=== PATIENT | male | born 1985 | race Caucasian/White ===

== ENCOUNTER 2020-01-04 20:28 | Emergency (ER) | payer SELFPAY ==
[~2020-01-04] VITALS: Ht 165.1 cm; Wt 95.3 kg
[2020-01-04 20:32] VITALS: BP 148/93
--- NOTE | 2020-01-04 20:32 | NUR ---
BIBA TO BED 05
--- NOTE | 2020-01-04 20:42 | NUR ---
DR. MANNING AT BEDSIDE EVALUATING PT.
--- NOTE | 2020-01-04 20:42 | NUR ---
33 Y/O M BIBA C/O LT FOOT PAIN 11/11 X 3 DAYS. [facility] REPORT, PT WAS FOUND IN FRONT OF [place] INSIDE A RENTAL CAR THAT HE HAS BEEN LIVING IN X 2 DAYS. PT AAOX1. PT CONFUSED, DOESN'T KNOW WHERE HE IS, HIS BIRTHDAY. PT ONLY KNOWS HIS NAME. PT LT FOOT SEEMS TO BE CONTRACTED AND IS WRAPPED. PT UNABLE TO EXPLAIN WHAT HAPPENED TO LEFT FOOT. BED LOCKED AND IN LOWEST POSITION, SIDE RAIL UP X2. WILL CONTINUE TO MONITOR. PMHX: DENIES ALLERGIES: DENIES
[2020-01-04] MEDS ORDERED: NACL 0.9% 1,000 ML IV ONE (20:50)
--- NOTE | 2020-01-04 20:51 | NUR ---
PT PROVIDED WITH FOOD AND WATER.
--- NOTE | 2020-01-04 21:06 | NUR ---
LABS OBTAINED AND GIVEN TO LAB.
[2020-01-04 21:10] LABS: BASOPHILS # (AUTO) 0.1 K/uL (0.00-0.22); BASOPHILS % (AUTO) 0.8 % (0.0-2.0); EOSINOPHILS # (AUTO) 0.1 K/uL (0-0.4); EOSINOPHILS % (AUTO) 1.4 % (0.0-4.0); HEMATOCRIT 46.2 % (36-52); HEMOGLOBIN 15.3 g/dL (12.0-18.0); LYMPHOCYTES % (AUTO) 19.9 % (20.5-51.1); MEAN CORPUSCULAR HEMOGLOBIN 28 pg (27-31); MEAN CORPUSCULAR HGB CONC 33 g/dL (33-37); MEAN CORPUSCULAR VOLUME 85.7 fL (80-94); MONOCYTES # (AUTO) 0.7 K/uL (0.8-1.0); MONOCYTES % (AUTO) 6.9 % (1.7-9.3); NEUTROPHILS # (AUTO) 7.2 K/uL (1.8-7.7); PLATELET COUNT (AUTO) 247 K/uL (140-450); RED BLOOD CELL COUNT(AUTO) 5.39 MIL/uL (4.20-6.10); RED CELL DISTRIBUTION WIDTH 14.5 % (11.6-13.7); WHITE BLOOD COUNT (AUTO) 10.1 K/uL (4.8-10.8)
[2020-01-04 21:29] LABS: ALBUMIN 3.9 g/dL (3.4-5.0); ANION GAP 15.5 (8-16); CARBON DIOXIDE 25.3 mmol/L (21-32); CREATININE 1.2 mg/dL (0.6-1.3); POTASSIUM 3.8 mmol/L (3.5-5.1); TOTAL BILIRUBIN 0.5 mg/dL (0.0-1.0)
--- NOTE | 2020-01-04 22:33 | NUR ---
PT RESTING IN BED, RR EVEN AND UNLABORED. NO C/O OF PAIN AT THIS TIME. BED LOCKED AND IN LOWEST POSITION. SIDE RAIL UP X1. WILL CONTINUE TO MONITOR.
[2020-01-04 23:15] VITALS: BP 148/93
--- NOTE | 2020-01-04 23:16 | NUR ---
Patient discharged with v/s stable. Written and verbal after care instructions given and explained. Patient verbalized understanding. Ambulatory with steady gait. All questions addressed prior to discharge. Advised to follow up with PMD.
== END 2020-01-04 23:15 | disposition home or self-care (01) ==
LOC: MED 20:28
DX: R41.82 Altered mental status, unspecified (principal)
CPT/HCPCS: 36415; 80053; 85025; 96360; 99283; J7030

== ENCOUNTER 2020-01-05 08:15 | Emergency (ER) | payer MEDICAID ==
[~2020-01-05] VITALS: Ht 175.3 cm; Wt 90.7 kg
--- NOTE | 2020-01-05 08:15 | NUR ---
Patient BIBA ALS, transferred to bed 9. RN evaluating patient at bedside.
[2020-01-05 08:19] VITALS: BP 114/88
--- NOTE | 2020-01-05 08:24 | NUR ---
BIBA TO BED 9.
--- NOTE | 2020-01-05 08:56 | NUR ---
PT TO X RAY
--- NOTE | 2020-01-05 09:18 | NUR ---
LABS DRAWN AT IV START
[2020-01-05 09:22] LABS: BASOPHILS # (AUTO) 0.1 K/uL (0.00-0.22); EOSINOPHILS # (AUTO) 0.1 K/uL (0-0.4); EOSINOPHILS % (AUTO) 1.8 % (0.0-4.0); HEMATOCRIT 45.2 % (36-52); HEMOGLOBIN 14.9 g/dL (12.0-18.0); LYMPHOCYTES # (AUTO) 1.6 K/uL (2.0-11.5); LYMPHOCYTES % (AUTO) 22.6 % (20.5-51.1); MEAN CORPUSCULAR HEMOGLOBIN 28 pg (27-31); MEAN CORPUSCULAR HGB CONC 33 g/dL (33-37); MEAN CORPUSCULAR VOLUME 85.7 fL (80-94); MONOCYTES # (AUTO) 0.5 K/uL (0.8-1.0); MONOCYTES % (AUTO) 7.6 % (1.7-9.3); NEUTROPHILS # (AUTO) 4.7 K/uL (1.8-7.7); PLATELET COUNT (AUTO) 222 K/uL (140-450); RED BLOOD CELL COUNT(AUTO) 5.27 MIL/uL (4.20-6.10); RED CELL DISTRIBUTION WIDTH 14.4 % (11.6-13.7)
--- NOTE | 2020-01-05 09:23 | NUR ---
DESHEVELED APPEARING, POSSIBLY TRANSIENT--PT WONT SAY HE WILL SPEAK WHEN HE WANTS---RESPONSIVE TO INTERNAL STIMULI PT ACKNOWLEDGES PAIN TO LEFT FOOT--COOPERATIVE AT THIS TIME
[2020-01-05 09:39] LABS: PROTHROMBIN TIME 11.2 secs (10.8-13.4)
[2020-01-05 09:41] LABS: ALBUMIN 3.6 g/dL (3.4-5.0); ANION GAP 11.8 (8-16); ASPARTATE AMINOTRANSFERASE 17 U/L (15-37); CARBON DIOXIDE 27.9 mmol/L (21-32); CHLORIDE 104 mmol/L (98-107); GFR ARICAN-AMERICAN 111 mL/min (>90); GLUCOSE 89 mg/dL (74-106); POTASSIUM 3.7 mmol/L (3.5-5.1); SODIUM SERUM 140 mmol/L (136-145); TOTAL BILIRUBIN 0.5 mg/dL (0.0-1.0); UREA NITROGEN, BLOOD 14 mg/dL (7-18)
[2020-01-05] MEDS ORDERED: NACL 0.9% 1,000 ML IV ONE (09:45)
[2020-01-05 09:46] LABS: ACETAMINOPHEN < 0.5 ug/ml (10-30); SALICYLATE < 2.8 mg/dL (2.8-20.0)
--- NOTE | 2020-01-05 12:12 | NUR ---
UA SENT TO LAB
[2020-01-05 12:23] LABS: APPEARANCE,URINE CLEAR (CLEAR); BILIRUBIN,URINE NEGATIVE (NEGATIVE); BLOOD, URINE NEGATIVE (NEGATIVE); COLOR,URINE YELLOW (YELLOW); LEUKOCYTE ESTERASE ,URINE NEGATIVE (NEGATIVE); NITRITE, URINE NEGATIVE (NEGATIVE); UGLUCOSE NEGATIVE (NEGATIVE)
[2020-01-05 12:30] LABS: BARBITURATE, URINE NEGATIVE ng/ml (NEG <=200); BENZODIAZEPINE, URINE NEGATIVE ng/mL (NEG <=200); CANNABINOID, URINE NEGATIVE ng/mL (NEG <=50); COCAINE, URINE NEGATIVE ng/mL (NEG <=300); PHENCYCLIDINE SCREEN,URINE NEGATIVE ng/mL (NEG <=25)
[2020-01-05 12:31] LABS: OPIATE, URINE NEGATIVE ng/mL (NEG <=2000)
--- NOTE | 2020-01-05 13:57 | NUR ---
Patient transferred to bed 5 for further care. RN evaluating patient at bedside.
--- NOTE | 2020-01-05 14:09 | NUR ---
PT IS AWAKE AND ALERT IN BED, NOT VERBAL AT THIS TIME. RESP EVEN AND UNLABORED. REPORT RECEIVED FROM ELDON JOSHUA
--- NOTE | 2020-01-05 16:05 | NUR ---
Called the following facilities: [facility] s/w Suzanne "at capacity but asked to fax packet for any discharges later for the AM" [facility] s/w Eusebio at capacity [facility] s/w Anna no [phone] beds, only voluntary
--- NOTE | 2020-01-05 16:25 | NUR ---
PT IS AWAKE AND ALERT IN BED. DENIES ANY PAIN OR DISCOMFORT AT THIS TIME. VSS
--- NOTE | 2020-01-05 19:23 | NUR ---
RECEIVED REPORT FROM SETH JOSHUA
--- NOTE | 2020-01-05 20:25 | NUR ---
PT RESTING QUIETLY IN HIS BED, VERY COOPERATIVE AT THIS TIME.
[2020-01-05] MEDS: OLANZapine 2.5 MG TAB PO SCH (21:09)
--- NOTE | 2020-01-06 02:47 | NUR ---
Note harley in [facility] - 01/06/20 at 0259 by [email or web address] PT SLEEPING. RESPIRATIONS UNLABORED, REGULAR, AND EVEN. REMAINS ON Q 15 MIN CHECKS.
--- NOTE | 2020-01-06 02:59 | NUR ---
PT SLEEPING. RESPIRATIONS UNLABORED, REGULAR, AND EVEN.
--- NOTE | 2020-01-06 05:12 | NUR ---
PIC TAKEN OF SKIN TEAR TO RIGHT MID BACK AREA, NON-ADHERENT DRESSING APPLIED
--- NOTE | 2020-01-06 06:00 | NUR ---
PT SLEEPIMG, NO SIGNS OF DISTRESS NOTED. RESPIRATIONS REGULAR, UNLABORED, AND EVEN. WILL CONTINUE TO MONITOR PT.
--- NOTE | 2020-01-06 07:20 | NUR ---
REPORT GIVEN TO RAINE JOSHUA
--- NOTE | 2020-01-06 07:27 | NUR ---
PT RESTING IN BED, SIDE RAIL X2
[2020-01-06] MEDS ORDERED: NACL 0.9% 1,000 ML IV SCH (08:37)
[2020-01-06] MEDS ORDERED: HYDROcodone/APAP 5/325 MG 1 TAB TAB PO PRN (08:40)
[2020-01-06] MEDS ORDERED: ONDANSETRON 4 MG/2 ML VIAL IM/IVP PRN (08:40)
[2020-01-06] MEDS ORDERED: ZOLPIDEM 5 MG TAB PO PRN (08:40)
[2020-01-06] MEDS ORDERED: LORazepam 2 MG/ML VIAL IM/IVP PRN (08:40)
[2020-01-06] MEDS ORDERED: ACETAMINOPHEN 325 MG TAB PO PRN (08:40)
[2020-01-06] MEDS ORDERED: POTASSIUM CHLORIDE 10 MEQ TABER PO PRN (08:40)
[2020-01-06] MEDS ORDERED: MAG SULF 2000 MG/WATER PREMIX 50 ML IV PRN (08:40)
[2020-01-06] MEDS ORDERED: MORPHINE SULFATE 2 MG/ML SYR IVP PRN (08:40)
[2020-01-06] MEDS ORDERED: DOCUSATE SODIUM 100 MG GELCAP PO PRN (08:40)
[2020-01-06] MEDS ORDERED: ENOXAPARIN 100 MG/ML SYR SUBQ SCH (09:00)
[2020-01-06] MEDS ORDERED: OLANZapine 5 MG ODT ONE (09:10)
--- NOTE | 2020-01-06 09:16 | NUR ---
CALLED PHARMACY TO BRING [id number]
[2020-01-06] MEDS: OLANZapine 2.5 MG TAB PO SCH (09:43)
--- NOTE | 2020-01-06 09:45 | NUR ---
PATIENT REFUSED LOVENOX SUBQ. EXPLAINED INDICATION FOR, AND RISK & BENEFITS. PT CONTINUES TO REFUSE.
[2020-01-06 10:11] VITALS: BP 129/64
--- NOTE | 2020-01-06 10:11 | NUR ---
Patient discharged with v/s stable. Written and verbal after care instructions given and explained. Patient verbalized understanding. Ambulatory with steady gait. All questions addressed prior to discharge. Advised to follow up with PMD. BUS PASS GIVEN TO PATIENT.
--- NOTE | 2020-01-06 19:00 | NUR ---
late entry- 1L IV NS [place] given
== END 2020-01-06 10:11 | disposition home or self-care (01) ==
LOC: MED 08:15
DX: S90.822A Blister (nonthermal), left foot, initial encounter (principal); G93.40 Encephalopathy, unspecified; Z73.6 Limitation of activities due to disability; X58.XXXA Exposure to other specified factors, initial encounter; Y93.89 Activity, other specified; Y92.89 Other specified places as the place of occurrence of the external cause; Y99.8 Other external cause status
CPT/HCPCS: 36415; 70450; 71045; 73610; 73630; 80053; 80305; 81003; 84484; 85025; 85610; 85730; 90471; 90715; 93005; 96360; 99285; G0480; G0482; J7030; Q0092; U0003; 96361; J1650